=== PATIENT | male | born 2000 | race Native Hawaiian/Other Pacific Islander ===

== ENCOUNTER 2022-12-20 21:25 | Emergency (ER) | payer OTHER ==
[~2022-12-20] VITALS: Ht 180.3 cm; Wt 104.7 kg
[~2022-12-20 21:25] MED LIST: COLC0.6T47 PO; IBUP-1022 PO; PANT40TA29 PO
[2022-12-20 22:13] LABS: BASO % 0.6 % (0.0-1.0); EOS # 0.4 10^3/uL (0.0-0.5); EOS % 5.2 % (0.0-3.0); HEMATOCRIT 46.8 % (42.0-52.0); HEMOGLOBIN 15.6 g/dl (13.5-17.5); LYMPH # 2.8 10^3/uL (1.5-5.0); LYMPH % 40.9 % (24.0-44.0); MEAN CORPUSCULAR HEMOGLOBIN 27.1 pg (27.0-33.0); MEAN CORPUSCULAR HGB CONC 33.3 g/dl (32.0-36.5); MEAN CORPUSCULAR VOLUME 81.4 fl (80.0-96.0); MONO # 0.7 10^3/uL (0.0-0.8); MONO % 10.6 % (2.0-8.0); NEUTROPHILS # 2.9 10^3/uL (1.5-8.5); NEUTROPHILS % 42.4 % (36.0-66.0); PLATELET COUNT, AUTOMATED 276 10^3/uL (150-450); RED BLOOD COUNT 5.75 10^6/uL (4.30-6.10); WHITE BLOOD COUNT 6.9 10^3/uL (4.0-10.0)
[2022-12-20 22:58] LABS: LIPASE 42 U/L (12-53)
[2022-12-20 23:00] LABS: ALBUMIN 3.8 G/DL (3.2-5.2); ALKALINE PHOSPHATASE 56 U/L (46-116); ALT/SGPT 37 U/L (7.0-40); AST/SGOT 28 U/L (<34); BILIRUBIN,DIRECT 0.1 MG/DL (<0.4); BILIRUBIN,TOTAL 0.3 MG/DL (0.3-1.2); BLOOD UREA NITROGEN 10 MG/DL (9-23); CALCIUM LEVEL 8.8 MG/DL (8.5-10.1); CARBON DIOXIDE LEVEL 26 MMOL/L (20-31); CHLORIDE LEVEL 102 MMOL/L (98-107); CK-MB VALUE MASS 2.1 NG/ML (<3.6); CREATININE FOR GFR 1.39 MG/DL (0.70-1.30); GLOMERULAR FILTRATION RATE > 60.0 (>60); GLUCOSE, FASTING 93 MG/DL (60-100); POTASSIUM SERUM 3.8 MMOL/L (3.5-5.1); SODIUM LEVEL 137 MMOL/L (136-145); TOTAL PROTEIN 7.1 G/DL (5.7-8.2)
[2022-12-20 23:08] LABS: CPK CREATINE PHOSPHOKINASE 382 U/L (46-171); MB/CK RELATIVE INDEX 0.54 (< OR =4)
[2022-12-20] MEDS ORDERED: NS 1,000 ML IV ONE (23:50)
[2022-12-20] MEDS ORDERED: ISOVUE-370 76% 100ML VIAL As Ordered ONE (23:52)
[2022-12-21 00:36] LABS: CK-MB VALUE MASS 1.8 NG/ML (<3.6)
[2022-12-21 00:39] LABS: MB/CK RELATIVE INDEX 0.48 (< OR =4)
[2022-12-21] MEDS ORDERED: MORPHINE 2 MG/ML 1ML VIAL IV ONE (01:10)
[2022-12-21 01:45] VITALS: BP 128/59
== END 2022-12-21 01:56 | disposition home or self-care (01) ==
LOC: M ED 21:25
DX: I30.9 Acute pericarditis, unspecified (principal); K21.9 Gastro-esophageal reflux disease without esophagitis; Z79.899 Other long term (current) drug therapy
CPT/HCPCS: 71045; 71275; 80048; 80076; 82550; 82553; 83690; 84484; 85025; 85379; 87486; 87581; 87633; 87798; 93005; 96374; 99284; Q9967

== ENCOUNTER → 2023-09-09 | Outpatient (CLI) | payer OTHER | LOC: M RAD 12:27 | PROVIDERS: ATTEND Orthopaedic Surgery | DX: M25.512 Pain in left shoulder (principal) ==